=== PATIENT | female | born 1990 | race Caucasian/White ===

== ENCOUNTER 2017-06-22 18:32 | Emergency (ER) | payer BC ==
[2017-06-22 19:38] VITALS: BP 141/86
[2017-06-22] MEDS ORDERED: Lidocaine 2% Viscous Solution 100 ML Bottle PO ONE (20:09)
--- NOTE | 2017-06-22 20:15 | EDM.PDOC ---
[id number] Complaint: SWALLOWED WIRE FROM BRUSH USED ON GRILL Time Seen by Provider: 06/22/17 19:45 Source of Information: Reports: Patient, Family History Limitations: Reports: No Limitations - History of Present Illness INITIAL COMMENTS - FREE TEXT/NARRATIVE: 27-year-old female who several hours ago swallowed a piece of meat and something scratch the back of her throat significantly where she feels she may have swallowed a bristle from a metal brush. Her symptoms are still there, she' s had some pain with swallowing but no difficulty swallowing. No abdominal pain , no shortness of breath. Onset: Sudden Severity: Mild Associated Symptoms: Reports: No Other Symptoms Throat Pain Score (Numeric/FACES): 4 - Related Data Allergies Allergy/AdvReac Type Severity Reaction Status Date / Time No Known Allergies Allergy Verified 06/22/17 19:38 Home Meds: Home Meds NK [No Known Home Meds] 06/22/17 [History] Past Medical History Musculoskeletal History: Reports: Fracture Psychiatric History: Reports: Anxiety - Past Surgical History HEENT Surgical History: Reports: Tonsillectomy Social & Family History - Tobacco Use Smoking Status *Q: Never Smoker - Alcohol Use Days Per Week of Alcohol Use: 3 Number of Drinks Per Day: 2 Total Drinks Per Week: 6 - Recreational Drug Use Recreational Drug Use: No ED ROS GENERAL - Review of Systems Review Of Systems: ROS reveals no pertinent complaints other than HPI. ED EXAM, GI/ABD - Physical Exam Exam: See Below Exam Limited By: No Limitations General Appearance: Alert, Moderate Distress Throat/Mouth: Inflammation (She has redness and irritation along the right oral posterior pharynx) Neck: Other ( some mild tenderness to palpation along the right paracervical area) Respiratory/Chest: No Respiratory Distress, Lungs Clear Neurological: Alert, Oriented Skin Exam: Warm, Dry Course - Vital Signs Last Recorded V/S: Last Vital Signs Temp 98.8 F 06/22/17 19:34 Pulse 90 06/22/17 19:34 Resp 16 06/22/17 19:34 BP 141/86 H 06/22/17 19:34 Pulse Ox 98 06/22/17 19:34 - Orders/Labs/Meds Orders: Active Orders 24 hr Category Date Time Status Abdomen 1V Upright [CR] Stat Exams 06/22/17 19:48 Taken Chest 1V Frontal [CR] Stat Exams 06/22/17 19:48 Taken Neck Soft Tissue [CR] Stat Exams 06/22/17 19:47 Taken Meds: Medications Discontinued Medications Generic Name Dose Route Start Last Admin Trade Name Elsa PRN Reason Stop Dose Admin Lidocaine HCl 20 ml 06/22/17 20:09 06/22/17 20:27 Xylocaine 2% Viscous PO 06/22/17 20:10 Not Given ONETIME ONE Lidocaine HCl Confirm 06/22/17 20:22 06/22/17 20:28 Xylocaine 2% Viscous Administered 06/22/17 20:23 15 ml Dose Administration 15 ml .ROUTE .STK-MED ONE - Re-Assessments/Exams Free Text/Narrative Re-Assessment/Exam: 06/22/17 20:08 A cervical soft tissue x-ray as well as a chest and abdomen were obtained and showed no metal foreign body. She was given some viscous lidocaine to use as needed, and should recheck in 2-3 days if not improving satisfactorily or sooner if worsening. Copies of the x-rays were given to the patient. Departure - Departure Time of Disposition: 20:30 Disposition: Home, Self-Care 01 Condition: Good Clinical Impression: Abrasion of pharynx Qualifiers: Encounter type: initial encounter Qualified Code(s): S10.11XA - Abrasion of throat, initial encounter - Discharge Information Instructions: Swallowed Foreign Body, Adult, [id number] Referrals: PCP,None [Primary Care Provider] - Forms: ED Department Discharge Care Plan Goals: Use topical numbing medicine as needed, and increase diet as tolerated. Consider rechecking in 2-3 days if not improving satisfactorily or return sooner if worsening such as abdominal pain or fever. - My Orders Last 24 Hours: My Active Orders 06/22/17 19:47 Neck Soft Tissue [CR] Stat 06/22/17 19:48 Abdomen 1V Upright [CR] Stat Chest 1V Frontal [CR] Stat - Assessment/Plan Last 24 Hours: My Active Orders 06/22/17 19:47 Neck Soft Tissue [CR] Stat 06/22/17 19:48 Abdomen 1V Upright [CR] Stat Chest 1V Frontal [CR] Stat
[2017-06-22] MEDS ORDERED: Lidocaine 2% Viscous Solution 15 ML Cup ONE (20:22)
--- NOTE | 2017-06-24 10:33 | CR ---
Foreign body survey There is no evidence of a radiopaque foreign body within the soft tissues of the neck, chest, or abd omen. Centrally within the pelvis is a radiopaque density which is incompletely visualized. Impression: 1.. Possible ingested foreign body in the pelvic region. 2. Otherwise negative.
== END 2017-06-22 20:30 | disposition home or self-care (01) ==
LOC: JP.ED 18:32
DX: S10.11XA Abrasion of throat, initial encounter (principal); F41.9 Anxiety disorder, unspecified; Z98.890 Other specified postprocedural states; X58.XXXA Exposure to other specified factors, initial encounter
CPT/HCPCS: 70360; 71010; 74000; 99284; A9270